=== PATIENT | female | born 1985 | race Two or more races ===

== ENCOUNTER → 2023-12-04 11:05 | Outpatient (REF) | payer OTHER, SELFPAY ==
[2023-12-04 12:20] LABS: ALT (SGPT) 23 U/L (0-35); AST (SGOT) 20 U/L (14-36)
[2023-12-04 16:18] LABS: Hepatitis C Antibody Negative (Negative)
== END ==
LOC: OHS 11:05
PROVIDERS: ATTENDING PHYSICIAN Nurse Practitioner Family
DX: Z23 Encounter for immunization (principal)
CPT/HCPCS: 36415; 84450; 84460; 86803; 87522

== ENCOUNTER → 2024-03-09 08:05 | Outpatient (REF) | payer BC, SELFPAY ==
[2024-03-09 09:10] LABS: % Basophils 0.9 % (0-2); % Immature Granulocytes 0.2 % (0-0.5); % Lymphocytes 35.3 % (20.5-51.1); % Monocytes 6.6 % (1.7-9.3); Absolute Basophils 0.1 10^3/uL (0-0.2); Absolute Eosinophils 0.3 10^3/uL (0-0.7); Absolute Lymphocytes 3.2 10^3/uL (1.2-3.4); Absolute Monocytes 0.6 10^3/uL (0.1-0.6); Absolute Neutrophils 4.9 10^3/uL (1.4-6.5); Hematocrit 31.2 % (37.0-47.0); Hemoglobin 10.9 g/dL (12.0-16.0); Mean Corp Hgb Conc. 34.9 g/dL (33.0-37.0); Mean Corpuscular Hgb 28.8 pg (27.0-31.0); Mean Corpuscular Volume 82.5 fL (81.0-99.0); Mean Platelet Volume 9.7 fL (7.4-10.4); Nucleated Red Blood Cells % 0 %; Platelet Count 401 10^3/uL (130-400); Red Blood Cell Count 3.78 10^6/uL (4.20-5.40); Red Cell Dist. Width 13.4 % (11.5-14.5)
[2024-03-09 09:31] LABS: ALT (SGPT) 21 U/L (0-35); AST (SGOT) 20 U/L (14-36); Albumin 4.5 g/dl (3.5-5.0); Alkaline Phosphatase 70 U/L (38-126); Blood Urea Nitrogen 14 mg/dl (7-17); Calcium 9.5 mg/dl (8.4-10.2); Carbon Dioxide 28 mmol/L (22-30); Chloride 104 mmol/L (98-107); Direct Bilirubin 0.1 mg/dl (0.0-0.4); Glucose 84 mg/dl (70-99); HDL Cholesterol 36 mg/dl; LDL Cholesterol, Calculated 130 mg/dl; Potassium 4.2 mmol/L (3.5-5.1); Sodium 137 mmol/L (135-145); Total Bilirubin 0.5 mg/dl (0.2-1.3); Total Cholesterol 195 mg/dl (50-199); Total Protein 7.1 g/dl (6.3-8.2); Triglyceride 145 mg/dl (10-149); Very Low Density Lipoprotein 29 mg/dl (0-30); eGFR > 60.00
[2024-03-09 10:21] LABS: Hepatitis C Antibody Negative (Negative)
[2024-03-09 10:44] LABS: Ferritin 12.5 ng/ml (6.24-137)
[2024-03-09 10:46] LABS: TSH Reflex To Free T4 1.73 uIU/ml (0.47-4.68)
[2024-03-09 11:12] LABS: Glycohemoglobin (HgbA1c) 5.4 % (4.0-5.6)
[2024-03-09 11:15] LABS: Folate > 20.0 ng/ml (2.76-20); Vitamin B12 613 pg/ml (239-931)
[2024-03-11 01:50] LABS: Vitamin D 1,25 Dihydroxy 44.5 pg/mL (19.9-79.3)
== END ==
LOC: REG 08:05
PROVIDERS: ATTENDING PHYSICIAN Nurse Practitioner Family; FAMILY PHYSICIAN Nurse Practitioner Family
DX: Z23 Encounter for immunization (principal); E55.9 Vitamin D deficiency, unspecified; E78.00 Pure hypercholesterolemia, unspecified; Z13.21 Encounter for screening for nutritional disorder; E61.1 Iron deficiency; Z13.29 Encounter for screening for other suspected endocrine disorder; Z13.1 Encounter for screening for diabetes mellitus; Z13.0 Encounter for screening for diseases of the blood and blood-forming organs and certain disorders involving the immune mechanism
CPT/HCPCS: 36415; 80053; 80061; 82248; 82607; 82652; 82728; 82746; 83036; 84443; 85025; 86803

== ENCOUNTER → 2024-05-19 16:07 | Outpatient (REF) | payer BC, SELFPAY | LOC: WDC 16:07 | PROVIDERS: ATTENDING PHYSICIAN Nurse Practitioner Family | DX: Z12.31 Encounter for screening mammogram for malignant neoplasm of breast (principal) | CPT/HCPCS: 77063; 77067 ==

== ENCOUNTER → 2024-06-09 10:18 | Outpatient (REF) | payer BC, SELFPAY | LOC: WDC 10:18 | PROVIDERS: ATTENDING PHYSICIAN Nurse Practitioner Family | DX: R92.8 Other abnormal and inconclusive findings on diagnostic imaging of breast (principal) | CPT/HCPCS: 76642 ==

== ENCOUNTER → 2025-03-25 07:20 | Outpatient (REF) | payer BC, SELFPAY ==
[2025-03-25 08:16] LABS: Urine Character Clear (Clear)
[2025-03-25 08:32] LABS: Urine Squamous Cell 16-20 /LPF (Few); Urine Urothelial Cell 0-2 /LPF (FEW)
[2025-03-25 08:34] LABS: Urine Red Blood Cell 30-40 /HPF (0-2)
[2025-03-25 09:28] LABS: Hematocrit 34.2 % (37.0-47.0); Hemoglobin 11.7 g/dL (12.0-16.0); Mean Corp Hgb Conc. 34.2 g/dL (33.0-37.0); Mean Corpuscular Volume 84.9 fL (81.0-99.0); Platelet Count 380 10^3/uL (130-400); Red Cell Dist. Width 13.3 % (11.5-14.5)
[2025-03-25 09:43] LABS: ALT (SGPT) 27 U/L (0-35); AST (SGOT) 19 U/L (14-36); Albumin 4.4 g/dl (3.5-5.0); Alkaline Phosphatase 61 U/L (38-126); Blood Urea Nitrogen 11 mg/dl (7-17); Calcium 9.4 mg/dl (8.4-10.2); Carbon Dioxide 28 mmol/L (22-30); Chloride 102 mmol/L (98-107); Glucose 77 mg/dl (70-99); HDL Cholesterol 35 mg/dl; LDL Cholesterol, Calculated 130 mg/dl; Potassium 4.4 mmol/L (3.5-5.1); Sodium 135 mmol/L (135-145); Total Protein 7.2 g/dl (6.3-8.2); Very Low Density Lipoprotein 33 mg/dl (0-30); eGFR > 60.00
[2025-03-25 09:56] LABS: Glycohemoglobin (HgbA1c) 5.4 % (4.0-5.6)
[2025-03-25 10:20] LABS: Ferritin 16.8 ng/ml (6.24-137)
[2025-03-25 10:51] LABS: Folate > 20.0 ng/ml (2.76-20); Vitamin B12 659 pg/ml (239-931)
== END ==
LOC: REG 07:20
PROVIDERS: ATTENDING PHYSICIAN Nurse Practitioner Family
DX: Z13.29 Encounter for screening for other suspected endocrine disorder (principal); E61.1 Iron deficiency; E55.9 Vitamin D deficiency, unspecified; E78.00 Pure hypercholesterolemia, unspecified; Z13.89 Encounter for screening for other disorder; Z13.1 Encounter for screening for diabetes mellitus; Z13.21 Encounter for screening for nutritional disorder
CPT/HCPCS: 36415; 80053; 80061; 81003; 81015; 82607; 82652; 82728; 82746; 83036; 84443; 85027

== ENCOUNTER → 2025-05-18 06:59 | Outpatient (REF) | payer BC, SELFPAY | LOC: RAD 06:59 | PROVIDERS: ATTENDING PHYSICIAN Nurse Practitioner Family | DX: R31.29 Other microscopic hematuria (principal) | CPT/HCPCS: 76770 ==